=== PATIENT | female | born 1955 | race Caucasian/White ===

== ENCOUNTER 2016-08-01 18:39 | Emergency (ER) | payer MEDICARE | END 2016-08-01 19:54 | disposition left against medical advice (07) | LOC: ER1 18:39 | DX: R07.9 Chest pain, unspecified (principal); Z53.8 Procedure and treatment not carried out for other reasons | CPT/HCPCS: 93005 ==

== ENCOUNTER → 2020-03-20 | Outpatient (CLI) | payer MEDICARE ==
[~2020-03-20] MED LIST: ALPRAZOLAM0.5 MG PO; ATENOLOL50 MG PO; ELIQUIS 2.5 MG2.5 MG GT; ENDOCET 5-3251 EACH PO; LAMICTAL TAB 2525 MG PO; NICOTINE PATCH1 EAC1 TOP; OXYCODON-ACETA1 EAC1 PO; TRAZODONE HCL150 MG PO
[2020-03-20 11:47] LABS: HEMOGLOBIN 13.2 gm/dl (12.3-15.3); RED BLOOD COUNT 4.21 M/UL (4.00-5.10); WHITE BLOOD COUNT 7.4 K/UL (4.5-11.0)
[2020-03-20 12:07] LABS: BUN/CREATININE RATIO 18 (0-10)
== END ==
LOC: OPSV2 11:05 → EDSTATUS 11:30 → OPSV2 11:30
PROVIDERS: Orthopaedic Surgery
DX: Z01.818 Encounter for other preprocedural examination (principal); M87.88 Other osteonecrosis, other site; R94.31 Abnormal electrocardiogram [ECG] [EKG]
CPT/HCPCS: 36415; 71046; 80048; 81001; 85025; 87081; 93005

== ENCOUNTER → 2020-03-27 | Outpatient (CLI) | payer MEDICARE ==
[2020-03-27 14:42] LABS: BUN/CREATININE RATIO 14 (0-10)
== END ==
LOC: LAB 13:12
PROVIDERS: Orthopaedic Surgery
DX: Z53.8 Procedure and treatment not carried out for other reasons (principal)
CPT/HCPCS: 36415; 80048; 86850; 86900; 86901

== ENCOUNTER 2020-03-28 09:19 | Inpatient (IN) | payer MEDICARE ==
[~2020-03-28] VITALS: Ht 162.6 cm; Wt 68.9 kg
[2020-03-28] MEDS ORDERED: ATENOLOL50 MG PO (11:13)
[2020-03-28] MEDS ORDERED: LAMICTAL TAB 2525 MG PO (11:13)
[2020-03-28] MEDS ORDERED: TRAZODONE HCL150 MG PO (11:13)
[2020-03-28] MEDS ORDERED: ALPRAZOLAM0.5 MG PO (11:13)
[2020-03-28] MEDS ORDERED: OXYCODON-ACETA1 EAC1 PO (15:24)
[2020-03-28] MEDS ORDERED: ELIQUIS 2.5 MG2.5 MG GT (15:24)
--- NOTE | 2020-03-29 00:44 | NUR ---
COMPRESSION STOCKINGS AND SCUDS APPLIED TO PATIENT. POLAR ICE APPLIED TO PT ONCE PT ARRIVED TO THE FLOOR FROM OR. INCENTIVE SPIROMETER PROVIDED TO PT AND EDUCATION ON THE USAGE OF INCENTIVE SPIROMETER WAS GIVEN WELL.
[2020-03-29 03:23] LABS: HEMOGLOBIN 11.6 gm/dl (12.3-15.3); RED BLOOD COUNT 3.8 M/UL (4.00-5.10); WHITE BLOOD COUNT 9.6 K/UL (4.5-11.0)
[2020-03-29 03:46] LABS: BUN/CREATININE RATIO 20 (0-10)
[2020-03-30 03:40] LABS: WHITE BLOOD COUNT 9.9 K/UL (4.5-11.0)
[2020-03-30 03:49] LABS: HEMOGLOBIN 9.1 gm/dl (12.3-15.3); RED BLOOD COUNT 3.01 M/UL (4.00-5.10)
[2020-03-30 03:54] LABS: BUN/CREATININE RATIO 20 (0-10)
[2020-03-31 03:40] LABS: HEMOGLOBIN 8.3 gm/dl (12.3-15.3); RED BLOOD COUNT 2.7 M/UL (4.00-5.10); WHITE BLOOD COUNT 6.9 K/UL (4.5-11.0)
[2020-03-31 04:19] LABS: BUN/CREATININE RATIO 13 (0-10)
[2020-03-31] MEDS ORDERED: NICOTINE PATCH1 EAC1 TOP (09:00)
--- NOTE | 2020-03-31 13:17 | NUR ---
CALLED REPOERT TO [facility] THIS TIME AT [facility]
--- NOTE | 2020-03-31 14:11 | NUR ---
CALLED EMS AN FAXED [facility] TO [facility] AT THIS TIME NOTED
--- NOTE | 2020-03-31 16:52 | NUR ---
CALLED TO CHECK BACK WITH EMS AND THE DELAY , HE STATES NOT FORGOT ABOUT HER , JUST BEEN BUSY ANS HAS 3 MORE AHWAD OF HER NOTED
== END 2020-03-31 20:05 | DRG 470 ==
LOC: ZOBSOF 09:19 → M/S 09:19
PROVIDERS: ADMIT Orthopaedic Surgery
PROC: 0SR904A Replacement of Right Hip Joint with Ceramic on Polyethylene Synthetic Substitute, Uncemented, Open Approach (ICD-10-PCS; principal; 2020-03-28 15:00)
PROC: 3E02340 Introduction of Influenza Vaccine into Muscle, Percutaneous Approach (ICD-10-PCS; 2020-03-31)
DX: M16.11 Unilateral primary osteoarthritis, right hip (principal); M87.851 Other osteonecrosis, right femur; D62 Acute posthemorrhagic anemia; I10 Essential (primary) hypertension; E78.5 Hyperlipidemia, unspecified; F41.9 Anxiety disorder, unspecified; Z20.822 Contact with and (suspected) exposure to COVID-19; J44.9 Chronic obstructive pulmonary disease, unspecified; F17.210 Nicotine dependence, cigarettes, uncomplicated; F32.9 Major depressive disorder, single episode, unspecified; F41.0 Panic disorder [episodic paroxysmal anxiety]; Z85.828 Personal history of other malignant neoplasm of skin; Z90.49 Acquired absence of other specified parts of digestive tract; Z87.442 Personal history of urinary calculi; Z90.710 Acquired absence of both cervix and uterus; Z79.899 Other long term (current) drug therapy; Z23 Encounter for immunization
CPT/HCPCS: 36415; 73501; 73502; 76000; 80048; 85027; 86850; 86900; 86901; 90686; 97116; 97162; 97166; 97530; 97535; C1776; G0008; J0171; J0690; J1100; J2001; J2270; J2704; J2795; J3010; J3370; J7030; J7050; J7120; U0002

== ENCOUNTER 2020-07-29 14:42 | Emergency (ER) | payer OTHER, MEDICARE ==
[~2020-07-29 14:42] MED LIST changes: -ENDOCET 5-3251 EACH PO
[2020-07-29 16:19] LABS: HEMOGLOBIN 12.3 gm/dl (12.3-15.3); RED BLOOD COUNT 4.23 M/UL (4.00-5.10); WHITE BLOOD COUNT 6.2 K/UL (4.5-11.0)
[2020-07-29 16:31] LABS: BUN/CREATININE RATIO 17 (0-10)
[2020-07-29] MEDS ORDERED: ENDOCET 5-3251 EACH PO (18:25)
== END 2020-07-29 19:02 | disposition home or self-care (01) ==
LOC: ER1 14:42
PROVIDERS: Emergency Medicine
DX: S22.41XA Multiple fractures of ribs, right side, initial encounter for closed fracture (principal); R10.11 Right upper quadrant pain; R10.31 Right lower quadrant pain; M79.602 Pain in left arm; V49.40XA Driver injured in collision with unspecified motor vehicles in traffic accident, initial encounter; Y92.410 Unspecified street and highway as the place of occurrence of the external cause
CPT/HCPCS: 71260; 72128; 72131; 73060; 73502; 80053; 85025; 96374; 96375; 96376; 99284; J2270; J2405; Q9967